=== PATIENT | male | born 2005 | race Caucasian/White ===

== ENCOUNTER 2024-05-25 11:17 | Outpatient (CLI) | payer OTHER ==
--- NOTE | 2024-05-25 17:15 | XRAY Report ---
PROCEDURE: Ankle 3+V LT INDICATIONS: ANKLE PAIN, LEFT TECHNIQUE: 3 views of the ankle were acquired. COMPARISON: None. FINDINGS: Bones: No fractures or dislocations. Ankle mortise is normally aligned on nonweightbearing view. N o suspicious bony lesions. Soft tissues: No tibiotalar joint effusion. Achilles tendon appears normal. IMPRESSION: No acute bony abnormality. If there remains a high clinical concern for fracture, consider cross-sect ional imaging now. If pain persists, consider repeat x-ray in 10-14 days or cross-sectional imaging. Reviewed by: Jane Erickson MD on 05/25/2024 5:14 PM PDT Approved by: Jane Erickson MD on 05/25/2024 5:14 PM PDT Station ID: [id number]
== END 2024-05-25 23:59 | disposition home or self-care (01) ==
LOC: DI.N 11:17
PROVIDERS: ATTEND Physician Assistant Medical
DX: M25.572 Pain in left ankle and joints of left foot (principal)